=== PATIENT | male | born 1940 | race Caucasian/White ===

== ENCOUNTER 2023-03-22 11:39 | Emergency (ER) | payer MEDICARE ==
[2023-03-22] MEDS ORDERED: Nitroglycerin 0.4 MG TAB 1 EACH ONE (11:49)
[2023-03-22 12:10] LABS: #Basophils 0.1 10x3/uL (0.0-0.2); #Eosinphils 0.2 10x3/uL (0.0-0.5); #Monocytes 0.6 10x3/uL (0.0-1.1); #Neutrophils 7.6 10x3/uL (1.5-8.4); %Basophils 0.8 % (0.0-2.0); %Eosinophils 2.1 % (0.0-6.0); %Lymphocytes 19.6 % (18.0-47.0); %Monocytes 5.4 % (0.0-10.0); %Neutrophils 71.1 % (40.0-75.0); Hematocrit 28.6 % (38.8-50.0); Hemoglobin 9.2 g/dL (13.5-17.5); Mean Corpuscular HGB CONC 32.2 g/dL (32.0-36.0); Mean Corpuscular Hemoglobin 26.4 pg (27.0-33.0); Mean Corpuscular Volume 81.9 fl (81.2-95.1); Mean Platelet Volume 9.5 fl (7.4-10.4); Platelet Count 249 10x3/uL (150-450); RBC Distribution Width 14.4 % (11.5-14.5); Red Blood Cell (RBC) Count 3.49 10x6/uL (4.32-5.72); White Blood Cell (WBC) Count 10.7 10x3/uL (3.5-10.5)
[2023-03-22 12:40] LABS: ALT (SGPT) 17 U/L (8-55); AST (SGOT) 18 U/L (5-34); Albumin 4.3 g/dL (3.4-4.8); Alkaline Phosphatase 52 U/L (40-110); Anion Gap 14 mmol/L (10-20); BUN (Urea Nitrogen) 17 mg/dL (8.4-25.7); Bilirubin, Total 0.4 mg/dL (0.2-1.2); Calc. Creatinine Clearance 0 mL/min (70-130); Calcium 8.8 mg/dL (7.8-10.44); Carbon Dioxide 23 mmol/L (23-31); Chloride 97 mmol/L (98-107); Estimated GFR 70; Globulin 2.1 g/dL (2.4-3.5); Glucose 267 mg/dL (83-110); Magnesium 1.5 mg/dL (1.6-2.6); Potassium 4.1 mmol/L (3.5-5.1); Protein, Total 6.4 g/dL (5.8-8.1); Sodium 130 mmol/L (136-145)
[2023-03-22 12:51] LABS: Troponin I 0.024 ng/mL (< 0.028)
[2023-03-22] MEDS ORDERED: Aspirin 325 MG TAB ONE (13:48)
[2023-03-22] MEDS ORDERED: Magnesium Oxide 400 MG TAB PO SCH (14:00)
[2023-03-22 14:57] LABS: Troponin I Less than 0.010 ng/mL (< 0.028)
== END 2023-03-22 15:13 | disposition home or self-care (01) ==
LOC: CSHERS 11:39
DX: R07.9 Chest pain, unspecified (principal); E11.9 Type 2 diabetes mellitus without complications; I10 Essential (primary) hypertension; Z79.84 Long term (current) use of oral hypoglycemic drugs; Z79.899 Other long term (current) drug therapy
CPT/HCPCS: 36415; 71045; 80053; 83735; 84484; 85025; 93005

== ENCOUNTER 2023-09-25 17:32 | Emergency (ER) | payer MEDICARE ==
[~2023-09-25 17:32] MED LIST: Iopamidol 370 76% 100 ML VIAL ONE
[2023-09-25] MEDS ORDERED: Hydrocortisone Sod Succ/PF 100 mg/2 ml Vial ONE (18:05)
[2023-09-25 18:24] LABS: INR-International Normal Ratio 1.1; PTT 27.6 sec (22.0-33.0); Prothrombin Time 11.7 sec (9.5-12.1)
[2023-09-25 18:26] LABS: #Basophils 0.07 10x3/uL (0.0-0.2); #Monocytes 0.57 10x3/uL (0.0-1.1); #Neutrophils 8.68 10x3/uL (1.5-8.4); %Basophils 0.6 % (0.0-2.0); %Eosinophils 1.7 % (0.0-6.0); %Lymphocytes 18.5 % (18.0-47.0); %Monocytes 4.8 % (0.0-10.0); %Neutrophils 73.8 % (40.0-75.0); ALT (SGPT) 19 U/L (8-55); AST (SGOT) 19 U/L (5-34); Albumin 3.8 g/dL (3.4-4.8); Alkaline Phosphatase 53 U/L (40-110); Anion Gap 16 mmol/L (10-20); BUN (Urea Nitrogen) 14 mg/dL (8.4-25.7); Bilirubin, Total 0.4 mg/dL (0.2-1.2); Calc. Creatinine Clearance 0 mL/min (70-130); Calcium 9.1 mg/dL (7.8-10.44); Carbon Dioxide 21 mmol/L (23-31); Chloride 95 mmol/L (98-107); Estimated GFR 64; Globulin 2.4 g/dL (2.4-3.5); Glucose 179 mg/dL (83-110); Hematocrit 32.1 % (38.8-50.0); Hemoglobin 11.1 g/dL (13.5-17.5); Mean Corpuscular HGB CONC 34.6 g/dL (32.0-36.0); Mean Corpuscular Hemoglobin 26.8 pg (27.0-33.0); Mean Corpuscular Volume 77.5 fl (81.2-95.1); Mean Platelet Volume 9.1 fl (7.4-10.4); Platelet Count 248 10x3/uL (150-450); Potassium 4.1 mmol/L (3.5-5.1); Protein, Total 6.2 g/dL (5.8-8.1); RBC Distribution Width 20.4 % (11.5-14.5); Red Blood Cell (RBC) Count 4.14 10x6/uL (4.32-5.72); Sodium 128 mmol/L (136-145); White Blood Cell (WBC) Count 11.8 10x3/uL (3.5-10.5)
[2023-09-25 18:31] LABS: Troponin I Less than 0.010 ng/mL (< 0.028)
[2023-09-25] MEDS ORDERED: Pantoprazole 40 MG VIAL ONE (20:14)
== END 2023-09-26 01:31 | disposition short-term general hospital (02) ==
LOC: CSHERS 17:32
DX: K92.2 Gastrointestinal hemorrhage, unspecified (principal); E87.6 Hypokalemia; R55 Syncope and collapse; I48.91 Unspecified atrial fibrillation; E11.9 Type 2 diabetes mellitus without complications; I10 Essential (primary) hypertension; Z79.01 Long term (current) use of anticoagulants; Z79.84 Long term (current) use of oral hypoglycemic drugs
CPT/HCPCS: 70450; 74174; 80053; 82274; 83605; 84484; 85025; 85610; 85730; 93005; 96374; 96375; C9113; J1720; Q9967